=== PATIENT | male | born 1950 | race Two or more races ===

== ENCOUNTER 2022-04-14 00:32 | Emergency (ER) | payer OTHER ==
[~2022-04-14] VITALS: Ht 182.9 cm; Wt 97.1 kg
[~2022-04-14 00:32] MED LIST: JANUMET 50-5001 EACH PO; SIMVASTATIN20 MG PO; TAMS0.4C PO; ZESTRIL5 MG PO
[2022-04-14] MEDS ORDERED: PHAZYME180 MG PO (02:55)
== END 2022-04-14 04:13 | disposition home or self-care (01) ==
LOC: ER 00:32
DX: R10.11 Right upper quadrant pain (principal)